=== PATIENT | female | born 1955 | race Two or more races ===

== ENCOUNTER 2025-06-27 08:57 | Outpatient (AMB) | payer MEDICARE, BC, SELFPAY ==
[2025-06-27 09:23] VITALS: BP 132/81; PULSE 67; RESP 18; TEMP 36.5; O2SAT 97; BMI 24.2
--- NOTE | 2025-06-27 09:23 | PD.ORTHCLVIS ---
Vital signs 06/27/25 09:23 Height 1.57 m Height Method Measured Weight 59.988 kg Weight Measurement Method Standing Scale BMI 24.2 BP 132/81 H Blood Pressure Source Automatic Cuff Blood Pressure Location Left Upper Arm Position Sitting Respiration 18 Pulse 67 Pulse Source Monitor Temp 97.7 F Temp Source Temporal Artery Scan Pulse Oximetry (%) 97 Oxygen Delivery Method Room Air Med/Allergies Allergies & Medications Allergies Cephalosporins Allergy (Unknown, Verified 06/27/25 09:24) CEPHALOSPORINS Allergy (Unknown, Uncoded 06/27/25 09:24) MUSHROOMS/BROCCLI Allergy (Unknown, Uncoded 06/27/25 09:24) Medication Reconciliation Unobtainable 06/27/25 [History Confirmed 06/27/25] Exam Exam Breathing is nonlabored. Patient has a normal mood and affect. Bilateral extremities were evaluated and demonstrates sensation intact to light touch. Palpable pedal pulses are present. No significant edema is present. Bilateral hips were examined. The patient has no pain with log roll of the hips. Internal rotation to 30 degrees and external rotation to 30 degrees is painless. Negative FADIR. Left knee was examined today. The left knee is in reasonable alignment. Range of motion from 0-120 degrees. Knee is stable to varus and valgus as well as AP translation with <5mm. Patient has a negative McMurrays. There is no pain with patellofemoral compression and no crepitus noted. The knee is nontender to palpation. The right knee was also examined. The right knee is in neutral alignment. Range of motion from 0-115 degrees. Knee is stable to varus and valgus as well as AP translation with <5mm. Patient has a positive Анна's. There is pain laterally at the level of the joint line. Imaging - MRI of both knees: Degenerative meniscal tear in both knees. Left knee shows a little bit of fat pad impingement, right knee looks normal. Assessment and Plan Problem List (1) Degenerative arthritis of knee, bilateral: Status: Acute Plan: ASSESSMENT AND PLAN 1. Bilateral knee pain: The bilateral knee pain is likely due to a degenerative meniscal tear or arthritic changes, as indicated by the MRI results. The left knee may also have a minor fat pad impingement, while the right knee appears normal. Physical therapy is recommended to help alleviate the pain and improve function. Anti-inflammatory medications such as Voltaren cream or meloxicam can be used, with meloxicam being preferred for longer-lasting relief if tolerated. Ibuprofen can be used for short-term relief, but it may require frequent dosing. A standing x-ray will be ordered to further assess the severity of the arthritis and the overall condition of the knees. If the pain intensifies, a cortisone injection may be considered to provide more immediate relief. Patient education includes discussing the benefits and potential side effects of anti-inflammatory medications, the importance of adhering to physical therapy, and the option of cortisone injections if necessary. 2. Ankle ligament tear: The ankle ligament tear is common and typically responds well to physical therapy. She is advised to inform her physical therapist about her ankle issues so that they can be addressed during her sessions. Strengthening exercises for the surrounding muscles are recommended to aid in recovery. The use of a boot is not recommended due to the inconvenience it may cause. Patient education includes discussing the natural healing process of ligament tears, the importance of physical therapy in recovery, and the benefits of strengthening exercises to support the ankle. Advanced Care Planning Discussion Advance care planning discussed with:: patient Office Procedures GNS Level of Care Nursing/Assessment Patient Status: Initial/New Patient Nursing Assessment/Reassesment: Medication Reconciliation, Update PMH in EMR and Vital Signs Coordination of Care: Complex Care and Chronic Disease 1-5, Education Complex Pt/Fam, Consent,records obtained, informed consent, Lab and Imaging orders, Results/Orders obtained and Staff clarify orders New Patient Charge New Patient Point Assignment: 1109 New Patient Point Charge: ROAD [employer]RAKE [employer]PLER Level 3 ([id number]) MA Intake Visit Data Collection New Patient or Established: New Patient (never been to [facility]) Reason for Visit:: BILATERAL KNEE PAIN Seen by Clinical Staff ONLY (RN/MA): 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 PCP or OBGYN visit in last 3 months: Yes Hx Now: No Do You Feel Safe at Home: Yes Authorities Contacted: N/A Questionairres Past Medical History Past Medical History Have you ever been diagnosed with any of the following: Subjective Visit Visit for: new patient and knee Immunization / Flu Flu Vaccine in the Last 12 Months: Yes Flu Vaccine Exclusion Criteria: Already Received History of Present Illness Chief complaint: BILATERAL KNEE PAIN HISTORY OF PRESENT ILLNESS Mo Person, have obtained verbal consent from the patient, to be recorded during this encounter which may include, but not limited to, medical history, examination, treatment plans, and relevant health information.? Patient was informed that recording will be read and reviewed by myself before inclusion in the medical chart. The patient is a 69-year-old female who presents with bilateral knee pain. She has been experiencing discomfort in her knees, which she attributes to three separate falls. The first incident occurred in 07/2024 when she tripped over a step stone, resulting in a twisted neck and a fall. This fall led to a broken big toe and radiating pain down her leg. Although the pain subsided after several months, she still experiences occasional discomfort and tightness. The second fall happened in 11/2024 or 12/2024 when she stepped from glass to her laundry room and her foot got stuck due to the step. In an attempt to steady herself, she twisted her right leg severely. This fall also resulted in radiating pain down her leg. The most recent fall occurred about 4 weeks ago when she tripped over a curb and fell on her right knee. Since then, she has been experiencing pain in her right knee, which is more severe than the left. The pain is particularly noticeable when she transitions from sitting to standing, as if something is getting caught in her knee. However, the pain improves with manipulation and walking. She has been attending physical therapy sessions for the past 2 weeks, which seem to be providing some relief. She has not tried meloxicam due to potential stomach issues. She has not had any standing x-rays. She has been taking ibuprofen before bedtime for the past 3 to 4 days, but can not tolerate it well. She also takes Pepcid to manage her stomach symptoms. She has tried Voltaren cream for her knee pain. Additionally, she reports a ligament tear in her ankle from the recent fall, which is causing her some discomfort. She has not been receiving physical therapy for her ankle. Personal History Red flag PMH: none Pain Pain level (0-10): 5 Pain location: inside (medial) and outside (lateral) Pain quality: aching Pain timing: increases with activity Associated signs & symptoms: stiffness Ambulatory data Ambulatory device: none Treatments Number of previous injections: 0 Improvement with previous injections: No Number of Physical Therapy sessions: 0 Improvement with PT: No Improvement with NSAIDS: no Review of Systems Review of Systems: All systems negative unless otherwise noted in HPI.
== END 2025-06-27 09:41 | disposition home or self-care (01) ==
LOC: HODSRG 08:57
PROVIDERS: PCP Internal Medicine; Referring Provider Internal Medicine; Supervising Provider Orthopaedic Surgery Adult Reconstructive Orthopaedic Surgery; Visit Provider Orthopaedic Surgery Adult Reconstructive Orthopaedic Surgery
DX: M25.562 Pain in left knee (principal); M25.561 Pain in right knee; S89.91XA Unspecified injury of right lower leg, initial encounter; S93.409A Sprain of unspecified ligament of unspecified ankle, initial encounter; W01.0XXA Fall on same level from slipping, tripping and stumbling without subsequent striking against object, initial encounter; M17.0 Bilateral primary osteoarthritis of knee
CPT/HCPCS: 99203; G0463